=== PATIENT | female | born 1945 | race Two or more races ===

== ENCOUNTER 2024-06-23 15:40 | Emergency (ER) | payer MEDICARE ==
[~2024-06-23] VITALS: Ht 165.1 cm; Wt 68.1 kg
[2024-06-23 19:44] VITALS: BP 149/89; PULSE 98; RESP 14; TEMP 97.9; O2SAT 100
--- NOTE | 2024-06-23 19:57 | ED.PDOC ---
Epistaxis- HPI HPI Comments PATIENT HOLGER DUE TO A NOSE BLEED. STATES THIS MORNING AT 2AM SHE HAD A NOSE BLEED FOR ABOUT 10 MINUTES THEN IT STOPPED. REPORTS HER NOSE HAS BEEN BLEEDING NOW FOR ABOUT 10-15 MINUTES PRIOR TO COMING IN ON THE RIGHT NOSTRIL. REPORTS HAVING HER NOSE CAUTERIZED IN THE PAST. Denies known trauma, headache, chest pain, shortness of breath, slurred speech, difficulty breathing.. 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 GASOLINE TRUCK [employer] OPERATOR History Family History Family History: Reviewed,noncontributory to illness Social History Smoker: Non-Smoker Alcohol: Denies ETOH Use Drugs: Denies Drug Use Constitutional: denies: chills, diaphoresis, fatigue, fever, malaise, sweats, weakness, others EENTM: reports: others (Right nare nosebleed); denies: blurred vision, double vision, ear bleeding, ear discharge, ear drainage, ear pain, ear ringing, eye pain, eye redness, hearing loss, mouth pain, mouth swelling, nasal discharge, nose bleeding, nose congestion, nose pain, photophobia, tearing, throat pain, throat swelling, voice changes Respiratory: denies: cough, hemoptysis, orthopnea, SOB at rest, shortness of breath, SOB with excertion, stridor, wheezing, others Cardiovascular: denies: chest pain, dizzy spells, diaphoresis, Dyspnea on exertion, edema, irregular heart beat, left arm pain, lightheadedness, palpitations, PND, syncope, others Gastrointestinal: denies: abdomen distended, abdominal pain, blood streaked bowels, constipated, diarrhea, dysphagia, difficulty swallowing, hematemesis, melena, nausea, poor appetite, poor fluid intake, rectal bleeding, rectal pain, vomiting, others Genitourinary: denies: abnormal vagina bleeding, burning, dyspareunia, dysuria, flank pain, frequency, hematuria, incontinence, pain, , vagina discharge, urgency, others Neurological: denies: dizziness, fainting, headache, left sided numbness, left sided weakness, numbness, paresthesia, pre-existing deficit, right sided numbness, right sided weakness, seizure, speech problems, tingling, tremors, weakness, others Musculoskeletal: denies: back pain, gout, joint pain, joint swelling, muscle pain, muscle stiffness, neck pain, others Integumetry: denies: bruises, change in color, change in hair/nails, dryness, laceration, lesions, lumps, rash, wounds, others Allergic/Immunocompromised: denies: Difficulty Healing, Frequent Infections, Hives, Itching, others Hematologic/Lymphatic: denies: anemia, blood clots, easy bleeding, easy bruising, swollen glands, others Endocrine: denies: excessive hunger, excessive sweating, excessive thirst, excessive urination, flushing, intolerance to cold, intolerance to heat, unexplained weight gain, unexplained weight loss, others Psychiatric: denies: anxiety, bipolar disorder, depression, hopeless, panic disorder, schizophrenia, sleepless, suicidal, others Physical Exam General Appearance: No Apparent Distress, Normal HEENT: Normal ENT Inspection, Pharynx Normal, TMs Normal, Other Neck: Full Range of Motion, Non-Tender Respiratory: Lungs Clear, No Respiratory Distress, Normal Breath Sounds Cardiovascular: No Murmur, Normal Peripheral Pulses, Regular Rate/Rhythm Breast Exam: Deferred Gastrointestinal: Non Tender, Soft Genitalia: Deferred Pelvic: Deferred Rectal: Deferred Extremities: Normal capillary refill, Normal inspection, Normal range of motion, Non-tender, No pedal edema Musculoskeletal : Apperance: Normal Neurologic: Alert, credit review analyst II-XII nml as Tested, No Motor Deficits, Normal Affect, Normal Mood, No Sensory Deficits Cerebellar Function: Normal Reflexes: Normal Skin: Dry, Normal Color, Warm Lymphatic: No Adenopathy Was a procedure done? Was a procedure done?: No Differential Diagnosis (NSB) Differential Diagnosis: Posterior Nasal Bleed, Hypertension, Coagulopathy X-Ray, Labs, Meds, VS Vital Signs Date Time Temp Pulse Resp B/P (MAP) Pulse Ox O2 Delivery O2 Flow Rate FiO2 06/23/24 19:44 98 14 100 Room Air 06/23/24 19:44 97.9 98 14 149/89 (109) 100 97.9 06/23/24 18:19 68 16 96 Room Air 06/23/24 18:19 97.7 95 16 128/56 (80) 96 97.7 06/23/24 15:45 97.9 98 16 149/89 (109) 100 X-Ray, Labs, Meds, VS Comment Bleeding stopped in triage. No noted Bleeding posterior or anterior on exam. Advised to stop aspirin and fish oil x2 days. Use a humidifier at night, and ocean nasal spray. Follow up with your PCP in 2-3 days as necessary consider referral to ENT for frequent nosebleeds. ER return precautions given patient indicates understanding agrees with discharge plan of care. Time of 1ST Reevaluation: 19:57 Reevaluation 1ST: Improved Patient Education/Counseling: Diagnosis, Treatment, Prognosis, Need For Follow Up Family Education/Counseling: Diagnosis, Treatment, Prognosis, Need For Follow Up Departure 1 Departure Time of Disposition: 19:57 Impression: Primary Impression: Epistaxis Disposition: 01 HOME / SELF CARE / HOMELESS Condition: Stable Discharged With: Spouse Critical Care Note Critical Care Time?: No Stability Stability form required: ASHLEE Bauman Jun 23, 2024 19:57
== END 2024-06-23 21:35 | disposition home or self-care (01) ==
LOC: EDBD 15:40 → ER 15:51
DX: R04.0 Epistaxis (principal)